=== PATIENT | male | born 1950 ===

== ENCOUNTER 2017-02-11 11:03 | Day surgery (SDC) | payer OTHER ==
[2017-02-11] MEDS ORDERED: Propofol 10 mg/ml Inj (20 ML) ONE (12:59)
[2017-02-11] MEDS ORDERED: Lactated Ringer's 500 ML IV SCH (13:00)
[2017-02-11] MEDS ORDERED: Lactated Ringer's 1,000 ML IV ONE (13:35)
[2017-02-11 15:08] VITALS: TEMP 97
[2017-02-11 15:10] VITALS: O2SAT 100
[2017-02-11 15:12] VITALS: RESP 18
[2017-02-11 15:21] VITALS: BP 154/78; PULSE 78
== END 2017-02-11 15:15 | disposition home or self-care (01) ==
LOC: EDSEX → C.ENDO 11:03
PROVIDERS: ATTEND Internal Medicine Gastroenterology
DX: K29.50 Unspecified chronic gastritis without bleeding (principal); Z12.11 Encounter for screening for malignant neoplasm of colon; K64.0 First degree hemorrhoids; D50.9 Iron deficiency anemia, unspecified
CPT/HCPCS: 43239; 45378; 82948; 88305; 88313; 88342; J2704; J7120

== ENCOUNTER → 2017-02-13 | Day surgery (SDC) | payer OTHER ==
--- NOTE | 2017-02-13 10:23 | CP.SDSHP ---
Same Day Surgery H & P - History Proposed Procedure: US guided FNA of right thyroid nodule Pre-Op Diagnosis: Right thyroid nodule - Allergies Allergies: Allergies No Known Allergies Allergy (Verified 02/11/17 12:02) - Physical Exam Mental Status: Alert & Oriented x3 - Impression Impression: Pt with a 2 cm complex right thyroid nodule. Plan US guided FNA. Pt. Evaluated Today:Candidate for Anesthesia & Procedure: No - Date & Time Date: 02/13/17 Time: 10:00 Short Stay Discharge - Short Stay Discharge Admitting Diagnosis/Reason for Visit: THYROID NODULE Disposition: HOME/ ROUTINE
--- NOTE | 2017-02-13 10:25 | PCM.SURG1 ---
Surgeon's Initial Post Op Note - Surgeon's Notes Surgeon: Germán Hand MD Lathe Hand: NONE Type of Anesthesia: Local Pre-Operative Diagnosis: Right thyroid nodule Operative Findings: Pt with a 2 cm complex right thyroid nodule. Post-Operative Diagnosis: Right thyroid nodule Operation Performed: US guided FNA of right thyroid nodule. Four 25 g FNA specimen removed. Specimen/Specimens Removed: 25 g FNA x 4 Estimated Blood Loss: EBL {In ML}: 0 Blood Products Given: N/A Drains Used: No Drains Post-Op Condition: Good Date of Surgery/Procedure: 02/13/17 Time of Surgery/Procedure: 10:20
--- NOTE | 2017-02-14 11:33 | US ---
PROCEDURE: Date of Procedure: 02/13/2017 PROCEDURE: 1. Ultrasound guided FNA of right thyroid nodule, CPT 56853 2. Ultrasound guidance for FNA, [address]2340 Medications: 3cc 1% Lidocaine HISTORY: Enlarged right thyroid nodule. TECHNIQUE: Following informed consent and procedure time-out, a limited ultrasound patient's neck confirmed the presence of a 3.1 cm x 2.1 cm complex right thyroid nodule which is predominantly solid. After the patient's neck was prepped and draped in the usual sterile fashion, the skin was anesthetized with 1% lidocaine. Ultrasound-guided fine needle aspiration was then performed of the dominant right thyroid nodule. A total of 4 passes were made into the nodule with 25 gauge needle under ultrasound guidance. The FNA specimen was sent for routine pathology. Post biopsy ultrasound showed no hematoma. IMPRESSION: Ultrasound-guided FNA of the dominant right thyroid nodule.
== END | disposition home or self-care (01) ==
LOC: C.SPRAD 09:12
PROVIDERS: ATTEND Radiology Vascular & Interventional Radiology
DX: E04.1 Nontoxic single thyroid nodule (principal)

== ENCOUNTER 2017-03-14 17:13 | Emergency (ER) | payer OTHER ==
[2017-03-14 17:44] VITALS: BMI 25.8
[2017-03-14 17:49] VITALS: RESP 20; O2SAT 99
[2017-03-14] MEDS ORDERED: Lidocaine 5% Patch TD STA (19:04)
[2017-03-14] MEDS ORDERED: Lidocaine 5% Patch TD ONE (19:24)
--- NOTE | 2017-03-14 20:33 | C.PDOC ---
History Of Present Illness 66 year old male presents to the ED for evaluation of mid-lower back pain which began after he slipped on ice and fell down two steps yesterday. Patient was evaluated by his PMD and was sent to the ED for XR imaging. Patient denies head injury, LOC, urinary/bowel incontinence, upper/lower extremity numbness/ weakness. (Layla Roy) History Per: Patient History/Exam Limitations: no limitations Current Symptoms Are (Timing): Still Present Quality Of Discomfort: "Pain" Previous Symptoms: Back Pain Associated Symptoms: denies: Incontinence, New Weakness, New Numbness Time Seen by Provider: 03/14/17 18:12 Chief Complaint (Nursing): Back Pain Past Medical History Reviewed: Historical Data, Nursing Documentation, Vital Signs - Medical History PMH: Gastritis, HTN, Hypercholesterolemia Denies: Chronic Kidney Disease Surgical History: Endoscopy Family History: States: Unknown Family Hx - Social History Hx Alcohol Use: No Hx Substance Use: No Vital Signs: Last Vital Signs Temp 98.1 F 03/14/17 20:55 Pulse 86 03/14/17 20:55 Resp 20 03/14/17 20:55 BP 156/79 H 03/14/17 20:55 Pulse Ox 99 03/14/17 21:32 Review Of Systems Genitourinary: Negative for: Incontinence Musculoskeletal: Positive for: Back Pain (mid-lower ) Neurological: Negative for: Weakness, Numbness, Other (head injury/LOC ) Physical Exam - Physical Exam Appears: Non-toxic, No Acute Distress Skin: Warm, Dry, Ecchymosis (mild, to right paralumbar region ) Head: Atraumatic, Normacephalic Eye(s): bilateral: Normal Inspection Oral Mucosa: Moist Neck: Supple Chest: Symmetrical, No Deformity, No Tenderness Cardiovascular: Rhythm Regular, No Murmur Respiratory: Normal Breath Sounds, No Accessory Muscle Use, No Rales, No Rhonchi , No Wheezing Gastrointestinal/Abdominal: Soft, No Tenderness Back: Decreased ROM (secondary to pain with movement ), Paraspinal Tenderness ( mild, right lumbar ), Other (mild swelling to right paralumbar area ) Extremity: Normal ROM, Capillary Refill (less than 2 seconds ) Neurological/Psych: Oriented x3, Normal Speech, Normal Cognition, Normal Sensation Gait: Steady ED Course And Treatment O2 Sat by Pulse Oximetry: 99 (on RA) Pulse Ox Interpretation: Normal - Other Rad thoracic spine XR X-Ray: Interpreted by Me, Viewed By Me, Read By Radiologist Interpretation: EXAM: XR Thoracic Spine, 2 Views. EXAM DATE/TIME: Exam ordered 03/14/2017 6:16 PM. CLINICAL HISTORY: 66 years old, male; Injury or trauma; Fall; Initial encounter; Swelling (edema); Additional info: Back. pain s. P fall. TECHNIQUE: Frontal and lateral views of the thoracic spine. COMPARISON: No relevant prior studies available. FINDINGS: Vertebrae: There are syndesmophytes noted throughout the thoracic spine and the visualized. portion of the lumbar spine. No acute fracture. Normal alignment. Disc spaces: No acute findings. No significant narrowing. Soft tissues: Normal. Other findings: There is a generalized decrease in bone density. IMPRESSION: Syndesmophytes noted throughout the visualized thoracolumbar spine suggest a bamboo spine. which is associated with ankylosing spondylitis. Clinical correlation suggested. No acute findings. lumbar spine XR X-Ray: Interpreted by Me, Viewed By Me, Read By Radiologist Interpretation: EXAM: XR Lumbar Spine, 2 or 3 Views. EXAM DATE/TIME: Exam ordered 03/14/2017 6:16 PM. CLINICAL HISTORY: 66 years old, male; Pain; Low back pain; Additional info: Back pain s. P fall. TECHNIQUE: Frontal and lateral views of the lumbar spine. COMPARISON: No relevant prior studies available. FINDINGS: Vertebrae: Osteophytes and syndesmophytes are seen in the thoracolumbar spine. Biconcave. deformity is noted of the L1 vertebral body which is likely a reflection of underlying osteoporosis. No. acute fracture. Normal alignment. Sacrum/coccyx: The sacroiliac joints are not entirely fused. No acute fracture. Disc spaces: No acute findings. No significant narrowing. Soft tissues: Normal. Vasculature: Vascular calcifications are present. Other findings: Is a generalized decrease in bone density. IMPRESSION: 1. No radiographic evidence of acute fracture. Biconcave deformity noted of lumbar vertebral bodies. may be a reflection of underlying osteoporosis. 2. Degenerative disease including syndesmophytes throughout the thoracolumbar spine. The. sacroiliac joints remain unfused. Possibility of ankylosing spondylitis might be considered Medical Decision Making Medical Decision Making: Impression: 66 y/o male with mid-lower back pain Plan: * Lidoderm TD * Valium PO * Dorsal spine (thoracic) XR * LS Spine XR * reassess and disposition Progress: Lidoderm TD and Valium PO administered, Dorsal (thoracic) spine XR, LS spine AP/LAT ordered. (Layla Roy) Disposition Counseled Patient/Family Regarding: Diagnosis, Need For Followup, Rx Given - Disposition Disposition Time: 20:33 - POA Present On Arrival: None - Disposition Referrals: Melinda Lu MD [Staff Provider] - Disposition: HOME/ ROUTINE Condition: STABLE Additional Instructions: Follow up with your primary medical doctor or clinic in 2-5 days for further evaluation. Take pain medication as needed. Return to the emergency department at any time if symptoms persist or worsen. Prescriptions: traMADol [Ultram] 50 mg PO Q8 #15 tab Instructions: Back Pain (ED) Forms: [employer] (Hebrew) - Clinical Impression Clinical Impression: Contusion of back - PA / WATCH BAND ASSEMBLER / Resident Statement MD/DO has reviewed & agrees with the documentation as recorded. - Scribe Statement The provider has reviewed the documentation as recorded by the Scribe (Cielo Ford) - Scribe Statement All medical record entries made by the Scribe were at my direction and personally dictated by me. I have reviewed the chart and agree that the record accurately reflects my personal performance of the history, physical exam, medical decision making, and the department course for this patient. I have also personally directed, reviewed, and agree with the discharge instructions and disposition. (Layla Roy) Addendum Addendum: 03/15/17 09:29 Attempted to notify patient about abdnormal final reading of the LS spine xray: Potential mild fracture of L1 vertebral body. Clinically correlate. CT or MRI follow-up may be useful. No apparent spondylolisthesis. Multifocal syndesmophytes are identified with ankylosing spondylitis in question. Called [phone], no answer, voice message was left. (Khadra Yen)
[2017-03-14 22:55] VITALS: BP 156/79; PULSE 86; TEMP 98.1
--- NOTE | 2017-03-15 07:52 | RAD ---
HISTORY: back pain s.p fall COMPARISON: No prior. FINDINGS: BONES: Normal thoracic curvature is identified. No definitive fracture or spondylolisthesis appreciated. Thin syndesmophytes are appreciated throughout the visualized thoracic spine pattern that may indicate ankylosing spondylitis. Clinically correlate further. DISC SPACES: Disc space heights are adequately maintained. SOFT TISSUES: Normal. OTHER FINDINGS: None. IMPRESSION: No fracture or spondylolisthesis identified acutely. Diffuse syndesmophytes throughout the thoracic spine may indicate ankylosing spondylitis. Clinically correlate.
--- NOTE | 2017-03-15 08:00 | RAD ---
PROCEDURE: Radiographs of the Lumbar Spine. HISTORY: back pain s.p fall COMPARISON: Abdomen and pelvis CT 01/29/2017. FINDINGS: BONES: Lumbar curvature appears grossly within normal limits. A limited compression fracture of L1 is difficult to completely exclude though this is not definite. Clinically correlate further. Diffuse syndesmophytes are appreciate throughout the vast majority lumbar spine may indicate ankylosing spondylitis though the feature is more consistent in the thoracic spine series also performed 03/14/2017. Please see separate report. No destructive bony lesion appreciable grossly. DISC SPACES: Disc interspace heights appear normal. OTHER FINDINGS: None. IMPRESSION: Potential mild fracture of L1 vertebral body. Clinically correlate. CT or MRI follow-up may be useful. No apparent spondylolisthesis. Multifocal syndesmophytes are identified with ankylosing spondylitis in question.
== END 2017-03-14 20:56 | disposition home or self-care (01) ==
LOC: C.ER 17:13
DX: S30.0XXA Contusion of lower back and pelvis, initial encounter (principal); W00.0XXA Fall on same level due to ice and snow, initial encounter; Y92.89 Other specified places as the place of occurrence of the external cause

== ENCOUNTER 2017-03-15 16:23 | Emergency (ER) | payer OTHER ==
[2017-03-15 16:24] VITALS: BMI 25.8
[2017-03-15 16:40] VITALS: O2SAT 98
--- NOTE | 2017-03-15 17:44 | C.PDOC ---
History Of Present Illness 66 year old male presents to the ER for repeat imaging after he was seen in the ER yesterday. Patient states that he was seen in the ER yesterday for back pain status post fall. He reports that he is taking Ibuprofen which provides transient relief. Patient denies having any new injuries.Of note, patient received a call to return today for repeat imaging.As per records, radiologist read X-Ray and found that there was a possible L1 vertebral fracture. Radiologist recommends that a CT or MRI should be performed for further evaluation. Time Seen by Provider: 03/15/17 16:46 Chief Complaint (Nursing): Back Pain History Per: Patient, Family (Daughter) History/Exam Limitations: language barrier Onset/Duration Of Symptoms: Days Current Symptoms Are (Timing): Still Present Severity: Moderate Past Medical History Reviewed: Historical Data, Nursing Documentation, Vital Signs Vital Signs: Last Vital Signs Temp 98.0 F 03/15/17 18:51 Pulse 69 03/15/17 18:51 Resp 20 03/15/17 18:51 BP 149/86 03/15/17 18:51 Pulse Ox 98 03/15/17 18:51 - Medical History PMH: Gastritis, HTN, Hypercholesterolemia Denies: Chronic Kidney Disease Surgical History: Endoscopy Family History: States: No Known Family Hx - Social History Hx Alcohol Use: No Hx Substance Use: No Review Of Systems Musculoskeletal: Positive for: Back Pain Neurological: Negative for: Weakness, Numbness Physical Exam - Physical Exam Appears: Non-toxic, No Acute Distress Skin: Normal Color, Warm, No Ecchymosis Head: Atraumatic, Normacephalic Eye(s): bilateral: Normal Inspection, EOMI Nose: Normal Oral Mucosa: Moist Neck: Supple Chest: Symmetrical Cardiovascular: Rhythm Regular, No Murmur Respiratory: Normal Breath Sounds, No Wheezing Back: Normal Inspection, Paraspinal Tenderness (lumbar) Extremity: Normal ROM, No Tenderness, No Swelling Neurological/Psych: Oriented x3, Normal Speech, Normal Motor, Normal Sensation Gait: Steady ED Course And Treatment O2 Sat by Pulse Oximetry: 98 (RA) Pulse Ox Interpretation: Normal - CT Scan/US Lumbar spine Other Rad Studies (CT/US): Read By Radiologist (Kyle Flores MD), Radiology Report Reviewed CT/US Interpretation: [facility] : Kyle Flores MD. Approver2 : Report Date : 03/15/2017 17:28:38. My Comment : . This report is currently processing and HAS NOT BEEN OFFICIALLY SIGNED BY THE PHYSICIAN - ESTIMATED TIME OF APPROVAL IS 03/15/2017 18:09. PROCEDURE: CT Lumbar Spine without contrast. HISTORY: abnormal L1 on Xray, CT further eval. COMPARISON: None. TECHNIQUE : Axial computed tomography images were obtained of the lumbar spine without the use of intravenous contrast. Coronal and sagittal reformatted images were created and reviewed. Radiation dose: Total exam DLP = 687.40 mGy-cm. This CT exam was performed using one or more of the following dose reduction techniques: Automated exposure control, adjustment of the mA and/or kV according to patient size, and/or use of iterative reconstruction technique. FINDINGS: VERTEBRAE: The vertebral bodies are maintained in height. The transverse processes and posterior elements are intact. DISCS/SPINAL CANAL/ NEURAL FORAMINA: L1-2: Unremarkable. L2-3: Unremarkable. L3-4: No disc bulge or herniation. Mild bilateral degenerative facet arthropathy. Moderate right and mild left neural foraminal stenosis. L4-5: Minimal disc bulge. No focal herniation. Bilateral degenerative facet arthropathy. Moderate right and mild left neural foraminal stenosis. L5-S1: Mild disc bulge. No focal herniation. No neural foraminal stenosis. Bilateral degenerative facet arthropathy. PARASPINAL SOFT TISSUES: Unremarkable. OTHER FINDINGS: None. IMPRESSION: Mild disc bulge L4-5 and L5-S1. Multilevel degenerative facet arthropathy. Bilateral neural foraminal stenosis at L3-4 and L4-5. No focal disc herniation. No evidence of L1 vertebral compression fracture. Medical Decision Making Medical Decision Making: Impression: Repeat Imaging for Back Pain Plan: --CT- Lumbar Spine --Toradol [address] shows Mild disc bulge L4-5 and L5-S1. Multilevel degenerative facet arthropathy. Bilateral neural foraminal stenosis at L3-4 and L4-5. No focal disc herniation. No evidence of L1 vertebral compression fracture. CT read by radiologist DR Mccord I provide copy of report to daughter and explained results. Instruct to follow up with DR Lu for further evaluation. Disposition Counseled Patient/Family Regarding: Diagnosis, Need For Followup - Disposition Referrals: Melinda Lu MD [Staff Provider] - Disposition: HOME/ ROUTINE Disposition Time: 18:06 Condition: STABLE Additional Instructions: CT shows Mild disc bulge L4-5 and L5-S1. Multilevel degenerative facet arthropathy. Bilateral neural foraminal stenosis at L3-4 and L4-5. No focal disc herniation. No evidence of L1 vertebral compression fracture. Follow up with Dr Lu in her office in few days Take pain medicine as needed Instructions: Lumbar Spinal Stenosis (ED), Acute Low Back Pain (DC) Forms: [employer] ([employer]) - POA Present On Arrival: None - Clinical Impression Clinical Impression: Contusion of back, Low back pain - PA / CHECK WEIGHER / Resident Statement MD/DO has reviewed & agrees with the documentation as recorded. - Scribe Statement The provider has reviewed the documentation as recorded by the Stef Suero Provider Attestation All medical record entries made by the Stef were at my direction and personally dictated by me. I have reviewed the chart and agree that the record accurately reflects my personal performance of the history, physical exam, medical decision making, and the department course for this patient. I have also personally directed, reviewed, and agree with the discharge instructions and disposition.
--- NOTE | 2017-03-15 18:04 | CT ---
PROCEDURE: CT Lumbar Spine without contrast HISTORY: abnormal L1 on Xray, CT further eval COMPARISON: None. TECHNIQUE: Axial computed tomography images were obtained of the lumbar spine without the use of intravenous contrast. Coronal and sagittal reformatted images were created and reviewed. Radiation dose: Total exam DLP = 687.40 mGy-cm. This CT exam was performed using one or more of the following dose reduction techniques: Automated exposure control, adjustment of the mA and/or kV according to patient size, and/or use of iterative reconstruction technique. FINDINGS: VERTEBRAE: The vertebral bodies are maintained in height. The transverse processes and posterior elements are intact. DISCS/SPINAL CANAL/NEURAL FORAMINA: L1-2: Unremarkable. L2-3: Unremarkable. L3-4: No disc bulge or herniation. Mild bilateral degenerative facet arthropathy. Moderate right and mild left neural foraminal stenosis. L4-5: Minimal disc bulge. No focal herniation. Bilateral degenerative facet arthropathy. Moderate right and mild left neural foraminal stenosis. L5-S1: Mild disc bulge. No focal herniation. No neural foraminal stenosis. Bilateral degenerative facet arthropathy. PARASPINAL SOFT TISSUES: Unremarkable. OTHER FINDINGS: None. IMPRESSION: Mild disc bulge L4-5 and L5-S1. Multilevel degenerative facet arthropathy. Bilateral neural foraminal stenosis at L3-4 and L4-5. No focal disc herniation. No evidence of L1 vertebral compression fracture.
[2017-03-15 18:53] VITALS: BP 149/86; PULSE 69; RESP 20; TEMP 98
== END 2017-03-15 18:53 | disposition home or self-care (01) ==
LOC: C.ER 16:23
DX: S30.0XXD Contusion of lower back and pelvis, subsequent encounter (principal); W18.30XD Fall on same level, unspecified, subsequent encounter; M54.5 Low back pain
CPT/HCPCS: 72131; 96372; 99284; J1885